=== PATIENT | female | born 1995 | race Caucasian/White ===

== ENCOUNTER 2020-02-12 23:22 | Emergency (ER) | payer BC ==
[2020-02-12] MEDS ORDERED: SODIUM CHLORIDE 0.9% 1,000 ML IV SCH (23:45)
[2020-02-12] MEDS ORDERED: SODIUM CHLORIDE 0.9% 500 ML 500 ML IV SCH (23:45)
[2020-02-12] MEDS ORDERED: ACETAMINOPHEN TAB 325 MG TAB PO STA (23:47)
[2020-02-13 00:14] LABS: Basophils % (A) 0 %; Eosinophils # (A) 0.1 k/uL (0-0.7); Eosinophils % (A) 0 %; HCT 43.2 % (34.0-46.0); HGB 14.1 gm/dL (11.4-16.0); Lymphocytes % (A) 6 %; MCH 28.9 pg (25.0-35.0); MCHC 32.6 g/dL (31.0-37.0); MCV 88.6 fL (80.0-100.0); Mean Platelet Volume 8.3; Monocytes # (A) 0.7 k/uL (0-1.0); Monocytes % (A) 4 %; Neutrophils # (A) 14.5 k/uL (1.3-7.7); Neutrophils % (A) 88 %; Platelet Count 175 k/uL (150-450); RBC 4.88 m/uL (3.80-5.40); RDW 13.7 % (11.5-15.5); WBC 16.5 k/uL (3.8-10.6)
[2020-02-13 00:26] LABS: ALT 28 U/L (4-34); AST 29 U/L (14-36); African American GFR (CKD) >90 (>60 ml/min/1.73 sqM); Albumin 4.3 g/dL (3.5-5.0); Alkaline Phosphatase 86 U/L (38-126); Anion Gap 12 mmol/L; Blood Urea Nitrogen 11 mg/dL (7-17); Calcium 9.3 mg/dL (8.4-10.2); Carbon Dioxide 19 mmol/L (22-30); Chloride 107 mmol/L (98-107); Glucose 118 mg/dL (74-99); Non-African American GFR(CKD) 88 (>60 ml/min/1.73 sqM); Potassium 3.9 mmol/L (3.5-5.1); Sodium 138 mmol/L (137-145); Total Bilirubin 0.6 mg/dL (0.2-1.3); Total Protein 7.3 g/dL (6.3-8.2)
[2020-02-13 00:40] LABS: Appearance,Urine Cloudy (Clear); Bacteria,Urine Rare /hpf; Bilirubin,Urine Negative (Negative); Blood,Urine Moderate (Negative); Color,Urine Yellow; Glucose,Urine (UA) Negative (Negative); Ketones,Urine 1+ (Negative); Leukocyte Esterase,Urine Large (Negative); Mucus,Urine Few /hpf; Nitrite,Urine Negative (Negative); Protein,Urine 2+ (Negative); RBC,Urine 39 /hpf (0-5); Squamous Epithelial Cell,Urine <1 /hpf (0-4); WBC,Urine >182 /hpf (0-5)
[2020-02-13 00:42] LABS: Partial Thromboplastin Time 26.7 sec (22.0-30.0); Prothrombin Time 10.7 sec (9.0-12.0)
[2020-02-13 01:15] VITALS: RESP 16
[2020-02-13] MEDS ORDERED: cefTRIAXone IN SWFI 1,000 MG/10 ML SYRINGE IVP STA (02:11)
--- NOTE | 2020-02-13 02:15 | ED ---
Fever HPI - General Chief Complaint: Fever Stated Complaint: Fever, nausea Source: patient Mode of arrival: ambulatory Limitations: no limitations - History of Present Illness Initial Comments: Ask is a 24-year-old female who presents the ER today for evaluation of fever and right-sided flank pain. Patient reports pain was persistent throughout the day today, she hasn't had any specific dysuria she cannot comment on if she's had hematuria as she's been on her menses. She denies any history of kidney stones. She denies any change in bowel habits. - Related Data Previous Rx's Medication Instructions Recorded Cephalexin [Keflex] 500 mg PO Q6HR 7 Days #28 cap 02/13/20 Allergies Allergy/AdvReac Type Severity Reaction Status Date / Time No Known Allergies Allergy Verified 02/12/20 23:29 Review of Systems ROS Statement: Those systems with pertinent positive or pertinent negative responses have been documented in the HPI. ROS Other: All systems not noted in ROS Statement are negative. Past Medical History Additional Past Medical History / Comment(s): stomach wrapped 2014 Past Surgical History: Adenoidectomy, Cholecystectomy, Tonsillectomy General Exam - General Exam Comments Initial Comments: Physical Exam GENERAL: Patient is well-developed and well-nourished. Patient is nontoxic and well- hydrated and is in no distress. HENT: Normocephalic, Atraumatic. EYES: PERRL, EOMI PULMONARY: Unlabored respirations. No audible rales rhonchi or wheezing was noted. CARDIOVASCULAR: There is a regular rate and rhythm without any murmurs gallops or rubs. ABDOMEN: Soft and nontender with normal bowel sounds. No tenderness to deep palpation in the right lower quadrant SKIN: Skin is clear with no lesions or rashes and otherwise unremarkable. : Deferred NEUROLOGIC: Patient is alert and oriented x3. Moving all extremities spontaneously MUSCULOSKELETAL: Normal extremities with adequate strength and full range of motion. No lower extremity swelling or edema. No calf tenderness. PSYCHIATRIC: Normal psychiatric evaluation. Limitations: no limitations Course Vital Signs 02/12/20 02/13/20 02/13/20 23:24 01:14 04:06 Temperature 99.8 F H 98.8 F 97.9 F Pulse Rate 136 H 103 H 104 H Respiratory 18 16 16 Rate Blood Pressure 119/78 114/69 114/60 O2 Sat by Pulse 95 98 96 Oximetry Medical Decision Making - Medical Decision Making The patient was seen and evaluated upon arrival to the emergency department Patient was noted to be febrile tachycardic with right-sided flank pain. A septic workup was initiated Labs resulted with leukocytosis, normal kidney function urine is suggestive of a urinary tract infection Patient's fever improved with anti-pyretics IV fluids Discussed imaging with patient she is agreeable to computed tomography scan to evaluate for possible stone versus pyelonephritis CT results with evidence of pyelonephritis. Results were discussed with patient, disposition options were discussed with the patient, she was OFFERED admission to the hospital for pyelonephritis so she did receive IV antibiotics and fluids. Patient feels that she is capable tolerating oral intake including antibiotics. Patient be discharged home with antiemetics and oral antibiotics. Close return parameters were discussed. Patient was advised to return to the ER if she has any nausea or vomiting, inability tolerate her oral antibiotics any concern for dehydration any fever not responsive to antipyretics or any new or concerning symptoms. Patient expressed understanding of this. Patient was discharged home in stable condition. - Lab Data Result diagrams: 02/12/20 23:54 02/12/20 23:54 Lab Results 02/12/20 02/12/20 02/12/20 Range/Units 23:54 23:54 23:54 WBC 16.5 H (3.8-10.6) k/uL RBC 4.88 (3.80-5.40) m/uL Hgb 14.1 (11.4-16.0) gm/dL Hct 43.2 (34.0-46.0) % MCV 88.6 (80.0-100.0) fL MCH 28.9 (25.0-35.0) pg MCHC 32.6 (31.0-37.0) g/dL RDW 13.7 (11.5-15.5) % Plt Count 175 (150-450) k/uL Neutrophils % 88 % Lymphocytes % 6 % Monocytes % 4 % Eosinophils % 0 % Basophils % 0 % Neutrophils # 14.5 H (1.3-7.7) k/uL Lymphocytes # 1.0 (1.0-4.8) k/uL Monocytes # 0.7 (0-1.0) k/uL Eosinophils # 0.1 (0-0.7) k/uL Basophils # 0.0 (0-0.2) k/uL PT 10.7 (9.0-12.0) sec INR 1.0 (<1.2) APTT 26.7 (22.0-30.0) sec Sodium 138 (137-145) mmol/L Potassium 3.9 (3.5-5.1) mmol/L Chloride 107 (98-107) mmol/L Carbon Dioxide 19 L (22-30) mmol/L Anion Gap 12 mmol/L BUN 11 (7-17) mg/dL Creatinine 0.91 (0.52-1.04) mg/dL Est GFR (CKD-EPI)AfAm >90 (>60 ml/min/1.73 sqM) Est GFR (CKD-EPI)NonAf 88 (>60 ml/min/1.73 sqM) Glucose 118 H (74-99) mg/dL Plasma Lactic Acid Patrick (0.7-2.0) mmol/L Calcium 9.3 (8.4-10.2) mg/dL Total Bilirubin 0.6 (0.2-1.3) mg/dL AST 29 (14-36) U/L ALT 28 (4-34) U/L Alkaline Phosphatase 86 (38-126) U/L Total Protein 7.3 (6.3-8.2) g/dL Albumin 4.3 (3.5-5.0) g/dL Urine Color Urine Appearance (Clear) Urine pH (5.0-8.0) Ur Specific [place] (1.001-1.035) Urine Protein (Negative) Urine Glucose (UA) (Negative) Urine Ketones (Negative) Urine Blood (Negative) Urine Nitrite (Negative) Urine Bilirubin (Negative) Urine Urobilinogen (<2.0) mg/dL Ur Leukocyte Esterase (Negative) Urine RBC (0-5) /hpf Urine WBC (0-5) /hpf Ur Squamous Epith Cells (0-4) /hpf Urine Bacteria (None) /hpf Urine Mucus (None) /hpf Urine HCG, Qual (Not Detectd) 02/12/20 02/13/20 02/13/20 Range/Units 23:54 00:07 00:07 WBC (3.8-10.6) k/uL RBC (3.80-5.40) m/uL Hgb (11.4-16.0) gm/dL Hct (34.0-46.0) % MCV (80.0-100.0) fL MCH (25.0-35.0) pg MCHC (31.0-37.0) g/dL RDW (11.5-15.5) % Plt Count (150-450) k/uL Neutrophils % % Lymphocytes % % Monocytes % % Eosinophils % % Basophils % % Neutrophils # (1.3-7.7) k/uL Lymphocytes # (1.0-4.8) k/uL Monocytes # (0-1.0) k/uL Eosinophils # (0-0.7) k/uL Basophils # (0-0.2) k/uL PT (9.0-12.0) sec INR (<1.2) APTT (22.0-30.0) sec Sodium (137-145) mmol/L Potassium (3.5-5.1) mmol/L Chloride (98-107) mmol/L Carbon Dioxide (22-30) mmol/L Anion Gap mmol/L BUN (7-17) mg/dL Creatinine (0.52-1.04) mg/dL Est GFR (CKD-EPI)AfAm (>60 ml/min/1.73 sqM) Est GFR (CKD-EPI)NonAf (>60 ml/min/1.73 sqM) Glucose (74-99) mg/dL Plasma Lactic Acid Patrick 1.5 (0.7-2.0) mmol/L Calcium (8.4-10.2) mg/dL Total Bilirubin (0.2-1.3) mg/dL AST (14-36) U/L ALT (4-34) U/L Alkaline Phosphatase (38-126) U/L Total Protein (6.3-8.2) g/dL Albumin (3.5-5.0) g/dL Urine Color Yellow Urine Appearance Cloudy H (Clear) Urine pH 6.0 (5.0-8.0) Ur Specific [place] 1.020 (1.001-1.035) Urine Protein 2+ H (Negative) Urine Glucose (UA) Negative (Negative) Urine Ketones 1+ H (Negative) Urine Blood Moderate H (Negative) Urine Nitrite Negative (Negative) Urine Bilirubin Negative (Negative) Urine Urobilinogen 2.0 (<2.0) mg/dL Ur Leukocyte Esterase Large H (Negative) Urine RBC 39 H (0-5) /hpf Urine WBC >182 H (0-5) /hpf Ur Squamous Epith Cells <1 (0-4) /hpf Urine Bacteria Rare H (None) /hpf Urine Mucus Few H (None) /hpf Urine HCG, Qual Not Detected (Not Detectd) Disposition Clinical Impression: Pyelonephritis Disposition: HOME SELF-CARE Condition: Stable Instructions (If sedation given, give patient instructions): Kidney Infection (ED) Prescriptions: Cephalexin [Keflex] 500 mg PO Q6HR 7 Days #28 cap Is patient prescribed a controlled substance at d/c from ED?: No Referrals: None,Stated [Primary Care Provider] - 1-2 days
--- NOTE | 2020-02-13 03:17 | CT ---
EXAMINATION TYPE: CT abdomen pelvis w con DATE OF EXAM: 02/13/2020 COMPARISON: HISTORY: Right flank pain CT DLP: 1585.2 mGycm Automated exposure control for dose reduction was used. CONTRAST: Performed with IV Contrast, patient injected with 100 mL of Isovue 300. Images were obtained from the diaphragm to the floor the pelvis with IV contrast. FINDINGS: There is mild subsegmental atelectasis at the lung bases. Heart size is normal. There is diffuse fatt y infiltration of the liver. There are clips from cholecystectomy. Bile ducts are not dilated. Pancre as appears normal. Spleen appears normal. Stomach appears normal. There is no adrenal mass. Kidneys have normal size. There is patchy decreased cortical enhancement of the right kidney compared to the left. Delayed images show slight decreased excretion of the right k idney compared to the left. There is some mild fat stranding around the right kidney. There is right side periureteral edema. There is no significant hydronephrosis. There is no retroperitoneal adenopat hy. Bladder distends smoothly. There is no inguinal hernia. There is no evidence of a pelvic mass. Ut erus is anteverted. Lumbar vertebra have normal spacing and alignment. Posterior elements are intact. Bony pelvis is intact. There is no mesenteric edema. There is no ascites or free air. Appendix appears normal. There is no s ign of a bowel obstruction. IMPRESSION: Perinephric edema and periureteral edema on the right side with patchy abnormal decreased cortical en hancement. This probably relates to acute pyelonephritis. No significant hydronephrosis or hydrourete r. No obstructing calculus seen. Abnormality appears new compared to old exam. Normal appendix. Fatty infiltration of the liver.
[2020-02-13] MEDS ORDERED: CEPHALEXIN 500MG STARTER PACK 4 CAP BTL PO STA (03:47)
[2020-02-13] MEDS ORDERED: ONDANSETRON 4 MG ODT STARTER PACK 2 TAB BTL PO STA (03:47)
[2020-02-13] MEDS ORDERED: ACET/COD 300 MG/30 MG STARTER PACK 6 TAB BTL PO STA (03:47)
[2020-02-13 04:07] VITALS: BP 114/60; PULSE 104; TEMP 97.9
== END 2020-02-13 04:16 | disposition home or self-care (01) ==
LOC: EC 23:22
DX: N12 Tubulo-interstitial nephritis, not specified as acute or chronic (principal); R00.0 Tachycardia, unspecified; Z90.89 Acquired absence of other organs
CPT/HCPCS: 36415; 74177; 80053; 81001; 81025; 83605; 85025; 85610; 85730; 87040; 87086; 93005; 96361; 96374; 99284

== ENCOUNTER 2020-02-14 16:32 | Emergency (ER) | payer BC ==
[2020-02-14 16:36] VITALS: TEMP 98.4
[2020-02-14] MEDS ORDERED: ACETAMINOPHEN TAB 325 MG TAB PO PRN (16:52)
[2020-02-14] MEDS ORDERED: NALOXONE 0.4 MG/ML 1 ML VIAL IV PRN (16:52)
[2020-02-14] MEDS ORDERED: SODIUM CHLORIDE 0.9% 1,000 ML IV SCH (17:00)
--- NOTE | 2020-02-14 17:02 | ED ---
Recheck HPI <ArnieDeepak - Last Filed: 02/14/20 17:42> - General Source: patient Mode of arrival: ambulatory Limitations: no limitations <Shefali Sampson - Last Filed: 02/14/20 20:09> - General Chief Complaint: Recheck/Abnormal Lab/Rx Stated Complaint: lab recheck Time Seen by Provider: 02/14/20 16:37 - History of Present Illness Initial Comments: 24-year-old female present to the ER secondary to positive culture results. Patient states that she received note that she had positive blood cultures were sent to the ER. She states 2 days prior she presented for low back pain which she states has significantly improved. Patient denies fevers she states she is feeling much better. She states she's had some nausea with the antibiotics but otherwise feels much better. Patient states she has been taking the antibiotics as directed. Denies lightheaded, presyncope. Patient denies chills, mailaise. upon arrival patient afebrile. Does not appear toxic. (Shefali Sampson) - Related Data Home Medications Medication Instructions Recorded Confirmed Acetaminophen-Codeine 300-30mg 1 tab PO Q6H PRN 02/14/20 02/14/20 [Tylenol w/codeine #3] Cetirizine HCl [Zyrtec] 10 mg PO DAILY 02/14/20 02/14/20 Ibuprofen [Motrin Ib] 400 mg PO Q6H PRN 02/14/20 02/14/20 Previous Rx's Medication Instructions Recorded Cephalexin [Keflex] 500 mg PO Q6HR 7 Days #28 cap 02/13/20 Allergies Allergy/AdvReac Type Severity Reaction Status Date / Time ondansetron [From Zofran] AdvReac Nausea & Verified 02/14/20 17:23 Vomiting Review of Systems ROS Other: All systems not noted in ROS Statement are negative. <Deepak Gaitan - Last Filed: 02/14/20 17:42> ROS Other: All systems not noted in ROS Statement are negative. <Shefali Sampson - Last Filed: 02/14/20 20:09> ROS Statement: Those systems with pertinent positive or pertinent negative responses have been documented in the HPI. Past Medical History Additional Past Medical History / Comment(s): stomach wrapped 2015 History of Any Multi-Drug Resistant Organisms: None Reported Past Surgical History: Adenoidectomy, Cholecystectomy, Tonsillectomy Smoking Status: Never smoker Past Alcohol Use History: None Reported Past Drug Use History: None Reported <Shefali Sampson - Last Filed: 02/14/20 20:09> General Exam Limitations: no limitations <Shefali Sampson - Last Filed: 02/14/20 20:09> - General Exam Comments Initial Comments: General: The patient is awake and alert, in no distress, and does not appear acutely ill. Eye: Pupils are equal, round and reactive to light, extra-ocular movements are intact. No nystagmus. There is normal conjunctiva bilaterally. No signs of icterus. Cardiovascular: There is a regular rate and rhythm. No murmur, rub or gallop is appreciated. Respiratory: Lungs are clear to auscultation, respirations are non-labored, breath sounds are equal. No wheezes, stridor, rales, or rhonchi. Gastrointestinal: Soft, non-distended, non-tender abdomen without masses or organomegaly noted. There is no rebound or guarding present. No CVA tenderness. Musculoskeletal: Normal ROM, no tenderness. Strength 5/5. Sensation intact. Radial pulses equal bilaterally 2+. Neurological: A&O x 3. CN II-XII intact grossly, There are no obvious motor or sensory deficits. Coordination appears grossly intact. Speech is normal. Skin: Skin is warm and dry and no rashes or lesions are noted. Psychiatric: Cooperative, appropriate mood & affect, normal judgment. (Shefali Sampson) Course <Deepak Gaitan - Last Filed: 02/14/20 17:42> Vital Signs 02/14/20 02/14/20 02/14/20 16:33 17: 18:56 Temperature 98.4 F Pulse Rate 112 H 97 95 Respiratory 18 16 16 Rate Blood Pressure 133/93 124/83 136/91 O2 Sat by Pulse 98 96 99 Oximetry - Reevaluation(s) Reevaluation #1: 02/14/20 17:42 PA supervision: Personal [id number] evaluation the patient she is present with complaints of flank pain and did have a blood culture done which showed evidence of E. coli. Patient she states she is however feeling better her pain is resolving. She has been on antibiotics since she left the emergency department. She still has some slight nausea. She would like to be discharge of possible she will receive IV antibiotics and fluids and nausea medication. She did have some trouble with Zofran. She will get an alternative. Agree with the assessment and plan. (Deepak Gaitan) Medical Decision Making - Lab Data Result diagrams: 02/14/20 17:02 02/14/20 17:02 <Deepak Gaitan - Last Filed: 02/14/20 17:42> - Lab Data Result diagrams: 02/14/20 17:02 02/14/20 17:02 <Shefali Sampson - Last Filed: 02/14/20 20:09> - Medical Decision Making Healthy 24-year-old female presenting for abnormal laboratory results. Blood cultures grew E. coli. Patient afebrile on arrival. Initial heart rate elevated remaining heart rates WNL. Patient states that all her of her symptoms have improved a lot. Patient CT revealed no septic stone. I had patient evaluated by my attending who spoke with patient who preferred discharge. Attending is agreeable to discharge with IVP of rocephin prior to discharge and continuation of oral antibiotics. patient is aware of return parameters. Patient discharged appearing well. (Shefali Sampson) - Lab Data Lab Results 02/14/20 02/14/20 02/14/20 Range/Units 17:02 17:02 17:02 WBC 9.6 (3.8-10.6) k/uL RBC 4.24 (3.80-5.40) m/uL Hgb 12.7 (11.4-16.0) gm/dL Hct 37.9 (34.0-46.0) % MCV 89.4 (80.0-100.0) fL MCH 29.9 (25.0-35.0) pg MCHC 33.4 (31.0-37.0) g/dL RDW 13.9 (11.5-15.5) % Plt Count 179 (150-450) k/uL Neutrophils % 78 % Lymphocytes % 14 % Monocytes % 5 % Eosinophils % 2 % Basophils % 0 % Neutrophils # 7.4 (1.3-7.7) k/uL Lymphocytes # 1.3 (1.0-4.8) k/uL Monocytes # 0.5 (0-1.0) k/uL Eosinophils # 0.2 (0-0.7) k/uL Basophils # 0.0 (0-0.2) k/uL Sodium 139 (137-145) mmol/L Potassium 3.3 L (3.5-5.1) mmol/L Chloride 106 (98-107) mmol/L Carbon Dioxide 24 (22-30) mmol/L Anion Gap 9 mmol/L BUN 8 (7-17) mg/dL Creatinine 0.71 (0.52-1.04) mg/dL Est GFR (CKD-EPI)AfAm >90 (>60 ml/min/1.73 sqM) Est GFR (CKD-EPI)NonAf >90 (>60 ml/min/1.73 sqM) Glucose 98 (74-99) mg/dL Plasma Lactic Acid Patrick (0.7-2.0) mmol/L Calcium 8.9 (8.4-10.2) mg/dL Total Bilirubin 0.5 (0.2-1.3) mg/dL AST 29 (14-36) U/L ALT 27 (4-34) U/L Alkaline Phosphatase 78 (38-126) U/L Total Protein 7.0 (6.3-8.2) g/dL Albumin 4.0 (3.5-5.0) g/dL Urine Color Yellow Urine Appearance Cloudy H (Clear) Urine pH 6.0 (5.0-8.0) Ur Specific [place] 1.012 (1.001-1.035) Urine Protein Trace H (Negative) Urine Glucose (UA) Negative (Negative) Urine Ketones 2+ H (Negative) Urine Blood Small H (Negative) Urine Nitrite Negative (Negative) Urine Bilirubin Negative (Negative) Urine Urobilinogen <2.0 (<2.0) mg/dL Ur Leukocyte Esterase Large H (Negative) Urine RBC 14 H (0-5) /hpf Urine WBC 31 H (0-5) /hpf Ur Squamous Epith Cells 21 H (0-4) /hpf Urine Bacteria Rare H (None) /hpf Urine Mucus Occasional H (None) /hpf 02/14/20 Range/Units 17:02 WBC (3.8-10.6) k/uL RBC (3.80-5.40) m/uL Hgb (11.4-16.0) gm/dL Hct (34.0-46.0) % MCV (80.0-100.0) fL MCH (25.0-35.0) pg MCHC (31.0-37.0) g/dL RDW (11.5-15.5) % Plt Count (150-450) k/uL Neutrophils % % Lymphocytes % % Monocytes % % Eosinophils % % Basophils % % Neutrophils # (1.3-7.7) k/uL Lymphocytes # (1.0-4.8) k/uL Monocytes # (0-1.0) k/uL Eosinophils # (0-0.7) k/uL Basophils # (0-0.2) k/uL Sodium (137-145) mmol/L Potassium (3.5-5.1) mmol/L Chloride (98-107) mmol/L Carbon Dioxide (22-30) mmol/L Anion Gap mmol/L BUN (7-17) mg/dL Creatinine (0.52-1.04) mg/dL Est GFR (CKD-EPI)AfAm (>60 ml/min/1.73 sqM) Est GFR (CKD-EPI)NonAf (>60 ml/min/1.73 sqM) Glucose (74-99) mg/dL Plasma Lactic Acid Patrick 1.1 (0.7-2.0) mmol/L Calcium (8.4-10.2) mg/dL Total Bilirubin (0.2-1.3) mg/dL AST (14-36) U/L ALT (4-34) U/L Alkaline Phosphatase (38-126) U/L Total Protein (6.3-8.2) g/dL Albumin (3.5-5.0) g/dL Urine Color Urine Appearance (Clear) Urine pH (5.0-8.0) Ur Specific [place] (1.001-1.035) Urine Protein (Negative) Urine Glucose (UA) (Negative) Urine Ketones (Negative) Urine Blood (Negative) Urine Nitrite (Negative) Urine Bilirubin (Negative) Urine Urobilinogen (<2.0) mg/dL Ur Leukocyte Esterase (Negative) Urine RBC (0-5) /hpf Urine WBC (0-5) /hpf Ur Squamous Epith Cells (0-4) /hpf Urine Bacteria (None) /hpf Urine Mucus (None) /hpf Disposition <Deepak Gaitan - Last Filed: 02/14/20 17:42> Is patient prescribed a controlled substance at d/c from ED?: No Time of Disposition: 17:02 <Shefali Sampson - Last Filed: 02/14/20 20:09> Clinical Impression: Pyelonephritis, Positive blood culture Disposition: HOME SELF-CARE Condition: Stable Instructions (If sedation given, give patient instructions): Kidney Infection (ED) Additional Instructions: Please use medication as discussed. Please follow-up with family doctor TOMORROW- if pain increases, fever returns, chills, or lightheaded return immediately return to the ER Please return to emergency room if the symptoms increase or worsen or for any other concerns. Referrals: Ron Salmeron DO [Primary Care Provider] - 1-2 days
[2020-02-14 17:15] VITALS: RESP 16
[2020-02-14] MEDS ORDERED: cefTRIAXone IN SWFI 1,000 MG/10 ML SYRINGE IVP STA (17:26)
[2020-02-14] MEDS ORDERED: METOCLOPRAMIDE 5 MG/ML 2 ML VIAL IVP STA (17:26)
[2020-02-14 17:27] LABS: Basophils % (A) 0 %; Eosinophils # (A) 0.2 k/uL (0-0.7); Eosinophils % (A) 2 %; HCT 37.9 % (34.0-46.0); HGB 12.7 gm/dL (11.4-16.0); Lymphocytes # (A) 1.3 k/uL (1.0-4.8); Lymphocytes % (A) 14 %; MCH 29.9 pg (25.0-35.0); MCHC 33.4 g/dL (31.0-37.0); MCV 89.4 fL (80.0-100.0); Mean Platelet Volume 8.5; Monocytes # (A) 0.5 k/uL (0-1.0); Monocytes % (A) 5 %; Neutrophils # (A) 7.4 k/uL (1.3-7.7); Neutrophils % (A) 78 %; Platelet Count 179 k/uL (150-450); RBC 4.24 m/uL (3.80-5.40); RDW 13.9 % (11.5-15.5); WBC 9.6 k/uL (3.8-10.6)
[2020-02-14 17:28] LABS: Appearance,Urine Cloudy (Clear); Bacteria,Urine Rare /hpf; Bilirubin,Urine Negative (Negative); Blood,Urine Small (Negative); Color,Urine Yellow; Glucose,Urine (UA) Negative (Negative); Ketones,Urine 2+ (Negative); Leukocyte Esterase,Urine Large (Negative); Mucus,Urine Occasional /hpf; Nitrite,Urine Negative (Negative); Protein,Urine Trace (Negative); RBC,Urine 14 /hpf (0-5); Specific Gravity,Urine 1.012 (1.001-1.035); Squamous Epithelial Cell,Urine 21 /hpf (0-4); Urobilinogen,Urine <2.0 mg/dL (<2.0); WBC,Urine 31 /hpf (0-5)
[2020-02-14 17:32] LABS: ALT 27 U/L (4-34); AST 29 U/L (14-36); African American GFR (CKD) >90 (>60 ml/min/1.73 sqM); Alkaline Phosphatase 78 U/L (38-126); Anion Gap 9 mmol/L; Blood Urea Nitrogen 8 mg/dL (7-17); Calcium 8.9 mg/dL (8.4-10.2); Carbon Dioxide 24 mmol/L (22-30); Chloride 106 mmol/L (98-107); Glucose 98 mg/dL (74-99); Non-African American GFR(CKD) >90 (>60 ml/min/1.73 sqM); Potassium 3.3 mmol/L (3.5-5.1); Sodium 139 mmol/L (137-145); Total Bilirubin 0.5 mg/dL (0.2-1.3)
[2020-02-14] MEDS ORDERED: POTASSIUM CHLORIDE ER 20 MEQ TAB.ER PO STA (18:18)
[2020-02-14 18:57] VITALS: BP 136/91; PULSE 95
== END 2020-02-14 19:04 | disposition home or self-care (01) ==
LOC: EC 16:32
DX: Z03.818 Encounter for observation for suspected exposure to other biological agents ruled out (principal); N12 Tubulo-interstitial nephritis, not specified as acute or chronic; R78.81 Bacteremia; Z90.49 Acquired absence of other specified parts of digestive tract; Z79.899 Other long term (current) drug therapy; Z88.8 Allergy status to other drugs, medicaments and biological substances
CPT/HCPCS: 36415; 80053; 83605; 85025; 81001; 87040; 87086; 99284; 96374; 96375; 96361 ×2; U0003; J2765; J0696

== ENCOUNTER → 2020-02-27 | Outpatient (CLI) | payer BC ==
--- NOTE | 2020-02-27 11:05 | XR ---
IVP WITHOUT TOMOGRAMS: CLINICAL HISTORY: N39.0 Frequent UTI, N10 Technique: Following intravenous administration of 100 cc Omnipaque 300, multiple spot images are obt ained. COMPARISON: None. The preliminary film of the abdomen reveals no significant abnormality. No definite nephrolithiasis i s seen. Following intravenous administration of contrast material, sequential films of the abdomen were obtai leann. There is prompt and symmetrical excretion of the contrast by both kidneys which demonstrate nor mal size and configuration. The collecting systems and visualized portions of the ureters reveal no abnormality. There is no mass or obstruction visualized. There is gradual accumulation of contrast material in the urinary bladder showing no gross abnormality. The post-voiding film shows minimal re sidual contrast in the collecting systems and urinary bladder. IMPRESSION: Essentially normal IVP , no significant finding is seen to account for patient's clinical symptoms.
== END | disposition home or self-care (01) ==
LOC: RADFLMAIN 08:53
PROVIDERS: ATTEND Family Medicine
DX: N39.0 Urinary tract infection, site not specified (principal)
CPT/HCPCS: 74400; Q9967